=== PATIENT | male | born 2000 | race Asian ===

== ENCOUNTER → 2021-02-25 | Emergency (ER) | payer SELFPAY ==
[~2021-02-25] VITALS: Ht 165.1 cm; Wt 50.5 kg
[~2021-02-25] MED LIST: NEURONTIN300 MG/CAP PO; SEROQUEL 1100 MG/TAB PO
[2021-02-25 09:35] VITALS: BP 144/104; TEMP 98.1
[2021-02-25 10:16] VITALS: PULSE 74
== END ==
LOC: COL.ER 09:25
DX: Z76.0 Encounter for issue of repeat prescription (principal); G47.00 Insomnia, unspecified